=== PATIENT | female | born 2005 | race African-American/Black ===

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

== ENCOUNTER 2023-04-13 10:23 | Emergency (ER) | payer MEDICAID ==
[~2023-04-13] VITALS: Ht 167.6 cm; Wt 87.0 kg
[2023-04-13 10:32] VITALS: O2SAT 100
[2023-04-13] MEDS ORDERED: ACETAMINOPHEN 325MG TABLET PO STA (10:58)
[2023-04-13] MEDS ORDERED: BACITRACIN ZINC OINT UDPKT TOP ONE (11:00)
[2023-04-13] MEDS ORDERED: IBUP-2029 PO (12:15)
[2023-04-13] MEDS ORDERED: BO1 TP (12:15)
[2023-04-13 12:42] VITALS: BP 102/64; PULSE 87; RESP 17; TEMP 98.7
== END 2023-04-13 12:43 | disposition home or self-care (01) ==
LOC: ER 10:23
DX: S69.91XA Unspecified injury of right wrist, hand and finger(s), initial encounter (principal); Y04.0XXA Assault by unarmed brawl or fight, initial encounter; Y93.89 Activity, other specified; Y92.89 Other specified places as the place of occurrence of the external cause; Y99.8 Other external cause status
CPT/HCPCS: 73130; 81025; 99283

== ENCOUNTER 2023-09-18 11:18 | Emergency (ER) | payer MEDICAID ==
[~2023-09-18] VITALS: Ht 167.6 cm; Wt 88.0 kg
[~2023-09-18 11:18] MED LIST: BO1 TP; IBUP-2029 PO
[2023-09-18 11:36] VITALS: BP 110/61; PULSE 88; RESP 22; O2SAT 100
[2023-09-18 12:18] LABS: BASOPHILS % 0.5 % (0.0-2.0); DIFFERENTIAL COMMENT 0; EOSINOPHILS % 2.8 % (0.0-5.0); HEMATOCRIT. 35.7 % (36.0-48.0); HEMOGLOBIN. 11.4 g/dL (12.0-16.0); LYMPHOCYTES % 35.1 % (20.0-50.0); MEAN CORPUSCULAR HEMOGLOBIN 23.1 pg (28.0-32.0); MEAN CORPUSCULAR HGB CONC 31.9 g/dL (31.0-37.0); MEAN CORPUSCULAR VOLUME 72.3 fL (81.0-99.0); MEAN PLATELET VOLUME 8.8 fl (7.4-10.4); MONOCYTES % 9.5 % (2.0-8.0); NEUTROPHILS % 52.1 % (40.0-76.0); PLATELET 286 x1000/uL (130-400); RED BLOOD CELL COUNT 4.93 mill/uL (4.2-5.4); RED CELL DISTRIBUTION WIDTH 15.3 % (11.6-14.6); WHITE BLOOD COUNT 6.8 x1000/uL (4.5-11.0)
[2023-09-18 12:41] LABS: ALANINE AMINOTRANSFERASE 15 IU/L (10-49); ALBUMIN 4.5 g/dL (3.2-4.8); ASPARTATE AMINOTRANSFERASE 24 IU/L (<34); BILIRUBIN TOTAL 0.5 mg/dL (0.1-1.0); CALCIUM 8.9 mg/dL (8.7-10.4); CARBON DIOXIDE 26 mEq/L (21-32); CHLORIDE 108 mEq/L (98-107); CREATININE 0.8 mg/dL (0.6-1.0); GLUCOSE 85 mg/dL (70-105); PROTEIN TOTAL 7.5 g/dL (6.0-8.3); SODIUM 139 mEq/L (136-145); UREA NITROGEN BLOOD 10 mg/dL (9-23)
== END 2023-09-18 16:53 | disposition home or self-care (01) ==
LOC: ER 11:18
DX: N83.202 Unspecified ovarian cyst, left side (principal)
CPT/HCPCS: 36415; 76856; 80053; 85025; 99284

== ENCOUNTER 2024-08-21 16:11 | Emergency (ER) | payer MEDICAID ==
[~2024-08-21] VITALS: Ht 167.6 cm; Wt 91.0 kg
[2024-08-21 16:19] VITALS: BP 123/73; TEMP 36.6; O2SAT 99
[2024-08-21 16:22] VITALS: PULSE 69; RESP 18; O2SAT 98
[2024-08-21] MEDS ORDERED: CYCLOBENZAPRINE 10MG TABLET PO ONE (18:30)
[2024-08-21] MEDS ORDERED: KETOROLAC 15MG/ML VIAL IM ONE (18:30)
[2024-08-21] MEDS ORDERED: KETOROLAC 15MG/ML VIAL IM NR (21:15)
[2024-08-21] MEDS ORDERED: CYCLOBENZAPRINE 10MG TABLET PO NR (21:15)
[2024-08-21] MEDS ORDERED: CYCL10TA21 MT (21:18)
[2024-08-21] MEDS ORDERED: NAPR-681 MT (21:18)
== END 2024-08-21 21:40 | disposition home or self-care (01) ==
LOC: ER 16:11
DX: R51.9 Headache, unspecified (principal); M25.562 Pain in left knee; M25.561 Pain in right knee; M25.532 Pain in left wrist; M54.50 Low back pain, unspecified; Z79.899 Other long term (current) drug therapy
CPT/HCPCS: 99284; 70450; 71045; 72100; 73110; 73562; 72125; J1885